=== PATIENT | male | born 1950 | race Caucasian/White ===

== ENCOUNTER 2017-10-12 08:07 | Emergency (ER) | payer MEDICARE, BC ==
--- NOTE | 2017-10-12 08:40 | UC ---
Skin Complaint HPI - HPI Summary HPI Summary: Left middle finger 1cm laceration on the tip of the finger that he got while washing dishes. There was a knife in the sink. He does not take any blood thinners. - History of Current Complaint Chief Complaint: UCLaceration Time Seen by Provider: 10/12/17 08:25 Stated Complaint: RIGHT RING FINGER LACERATION Hx Obtained From: Patient Onset/Duration: Sudden Onset, Lasting Hours Skin Exposure Onset/Duration: Hours Ago Timing: Constant Onset Severity: Mild Current Severity: Mild Location: Discrete, Hand (Left) Aggravating Factor(s): Touch Alleviating Factor(s): Nothing Associated Signs & Symptoms: Positive: Tenderness. Negative: Nausea, Vomiting, Numbness, Thirst, Diaphoresis, Weakness, Pallor, Shivering, Fever, Chills, Cough , Rash Related History: Trauma - Allergy/Home Medications Allergies/Adverse Reactions: Allergies Allergy/AdvReac Type Severity Reaction Status Date / Time No Known Allergies Allergy Verified 10/12/17 08:15 Home Medications: Home Medications Acetaminophen [Acetaminophen ER] 650 mg PO Q4H PRN 10/12/17 [History Confirmed 10/12/17] Ascorbic Acid TAB* [Vitamin C TAB*] 500 mg PO DAILY 10/12/17 [History Confirmed 10/12/17] Vitamin THERAPEUTIC TAB* [Theragran TAB*] 1 tab PO DAILY 10/12/17 [History Confirmed 10/12/17] Review of Systems Skin: Other - laceration. All Other Systems Reviewed And Are Negative: Yes PMH/Surg Hx/FS Hx/Imm Hx Previously Healthy: No - Joint pain/arthritis. - Surgical History Surgical History: Yes Surgery Procedure, Year, and Place: TONSILECTOMY. HERN[facility] - Family History Known Family History: Positive: Other - no related family history pertaining to his laceration. - Social History Occupation: Retired Lives: With Family Alcohol Use: "a couple beers ... daily" Substance Use Type: None Smoking Status (MU): Former Smoker Length of Time of Smoking/Using Tobacco: 1 PPD x 30 Years When Did the Patient Quit Smoking/Using Tobacco: 2001 - Immunization History Most Recent Influenza Vaccination: August 2017 Most Recent Tetanus Shot: ~2013 Physical Exam Triage Information Reviewed: Yes Appearance: Well-Appearing, No Pain Distress, Well-Nourished Vital Signs: Initial Vital Signs Temp 98.4 F 10/12/17 08:13 Pulse 68 10/12/17 08:13 Resp 16 10/12/17 08:13 BP 153/82 10/12/17 08:13 Pulse Ox 97 10/12/17 08:13 Vital Signs Reviewed: Yes Eye Exam: Normal Eyes: Positive: Conjunctiva Clear ENT: Positive: Normal ENT inspection Neck: Positive: Supple, Nontender, No Lymphadenopathy. Negative: Nuchal Rigidity Respiratory: Positive: No respiratory distress, No accessory muscle use. Negative: Respiratory distress Cardiovascular: Positive: Brisk Capillary Refill Abdomen Description: Negative: Distended Musculoskeletal: Positive: Strength Intact, ROM Intact, No Edema Neurological: Positive: Alert, Muscle Tone Normal. Negative: Fatigued Skin Exam: Other - 1cm laceration superficial. Laceration Repair - Laceration Repair 1 Description: Linear : No Repair Necessary Laceration Size After Repair: Length (cm) - 1cm Modified For Repair: No Cleansing Completed Via Routine Prep: Yes Course/Dx - Course Course Of Treatment: Wound care described in detail. He will keep dressed and clean. - Diagnoses Provider Diagnoses: superficial simple laceration. Wound bandaging. no repair. Discharge - Discharge Plan Condition: Good Disposition: HOME Patient Education Materials: Laceration (ED) Referrals: Shay Shahid MD [Primary Care Provider] -
[2017-10-12 08:41] VITALS: BP 153/82
== END 2017-10-12 08:50 | disposition home or self-care (01) ==
LOC: UCCORT 08:07
DX: S61.213A Laceration without foreign body of left middle finger without damage to nail, initial encounter (principal); W26.0XXA Contact with knife, initial encounter; Y93.G1 Activity, food preparation and clean up
CPT/HCPCS: 36415; 86803; 99212; G0463